=== PATIENT | male | born 1985 | race Caucasian/White ===

== ENCOUNTER 2024-09-07 03:33 | Emergency (ER) | payer OTHER ==
[~2024-09-07] VITALS: Ht 170.2 cm; Wt 80.0 kg
[2024-09-07 03:35] VITALS: O2SAT 98
[2024-09-07 04:18] LABS: BASOPHILS % 2.3 % (0.0-2.0); EOSINOPHILS % 4.1 % (0.0-5.0); HEMATOCRIT. 37.0 % (42.0-52.0); HEMOGLOBIN. 12.2 g/dL (14.0-18.0); LYMPHOCYTES % 33.9 % (20.0-50.0); MEAN PLATELET VOLUME 6.9 fl (7.4-10.4); MONOCYTES % 10.4 % (2.0-8.0); NEUTROPHILS % 49.3 % (40.0-76.0); PLATELET 410 x1000/uL (130-400); RED BLOOD CELL COUNT 4.23 mill/uL (4.7-6.1); RED CELL DISTRIBUTION WIDTH 15.5 % (11.6-14.6)
[2024-09-07 04:35] LABS: CREATININE 0.7 mg/dL (0.6-1.3)
[2024-09-07 04:36] LABS: ETHANOL BLOOD < 10 mg/dL (<10); UREA NITROGEN BLOOD 15 mg/dL (9-23)
[2024-09-07 10:35] LABS: *AMPHETAMINES SCREEN URINE PRESUMPTIVE POSITIVE (NEGATIVE)
[2024-09-07 10:36] LABS: *BARBITURATES SCREEN URINE NEGATIVE (NEGATIVE); *BENZODIAZEPINES SCREEN URINE NEGATIVE (NEGATIVE); *COCAINE SCREEN URINE NEGATIVE (NEGATIVE); CANNABINOID URINE SCREEN NEGATIVE (NEGATIVE); ECSTASY MDMA SCREEN URINE NEGATIVE (NEGATIVE); METHADONE URINE SCREEN NEGATIVE (NEGATIVE); OPIATES URINE SCREEN NEGATIVE (NEGATIVE); PHENCYCLIDINE URINE SCREEN NEGATIVE (NEGATIVE)
[2024-09-07] MEDS ORDERED: HYDROXYZINE 25MG TABLET PO PRN (13:00)
[2024-09-07] MEDS: ARIPIPRAZOLE 5MG TABLET PO SCH (13:34)
[2024-09-07 17:38] LABS: CLARITY URINE CLEAR (CLEAR); COLOR URINE YELLOW (YELLOW); GLUCOSE URINE NEGATIVE (NEGATIVE); KETONES URINE NEGATIVE (NEGATIVE); LEUKOCYTE ESTERASE URINE NEGATIVE (NEGATIVE); NITRITE URINE NEGATIVE (NEGATIVE); OCCULT BLOOD URINE NEGATIVE (NEGATIVE); PH URINE 7.0 (4.5-8.0); PROTEIN URINE NEGATIVE (NEGATIVE); SPECIFIC GRAVITY URINE 1.013 (1.005-1.030); UROBILINOGEN URINE 0.2 E.U./dL (0.2-1.0)
[2024-09-09] MEDS: TRAZODONE HCL 50MG TABLET PO SCH (22:03)
[2024-09-10 13:10] VITALS: BP 115/76; PULSE 64; RESP 16; TEMP 36.7; O2SAT 99
== END 2024-09-10 13:15 | disposition home or self-care (01) ==
LOC: ER 03:33
DX: R45.851 Suicidal ideations (principal); F32.A Depression, unspecified; G40.909 Epilepsy, unspecified, not intractable, without status epilepticus; Z88.8 Allergy status to other drugs, medicaments and biological substances; Z20.822 Contact with and (suspected) exposure to COVID-19
CPT/HCPCS: 36415; 80048; 80305; 80307; 80320; 80329; 81003; 85025; 87426; 99285; G0480